=== PATIENT | male | born 1965 | race Caucasian/White ===

== ENCOUNTER 2019-03-17 10:10 | Emergency (ER) | payer OTHER ==
[2019-03-17] MEDS ORDERED: FLU Vacc QS2019-20(6MOS+)/PF 60 MCG/0.5 ML SYRINGE IM ONE (10:30)
--- NOTE | 2019-03-17 10:51 | EDM.PDOC ---
ED HPI GENERAL MEDICAL PROBLEM - General Chief Complaint: Upper Extremity Injury/Pain Stated Complaint: HAND PAIN AND LEG PAIN Time Seen by Provider: 03/17/19 10:38 Source of Information: Reports: Patient, RN Notes Reviewed - History of Present Illness INITIAL COMMENTS - FREE TEXT/NARRATIVE: 53-year-old male comes in with bilateral wrist pain, right ankle pain. He states he injured his right ankle at work about a week ago. He twisted the ankle and it has been sore and swollen since that time. The other reason he comes in is for bilateral wrist discomfort. States he was "detained" by a [employer] police coxswain last evening. He was asked to leave the bar, not drinking but apparently creating some type of disturbance. He was asked to leave but apparently did not leave fast enough and therefore he was in his words "detained" which included having handcuffs placed. He was held that [facility] for "16 hours" and just released a short time ago. He states he has bilateral wrist discomfort. He also suffered some bruising to his left upper arm and also suffered a left fore head abrasion. There was no LOC. He does not have significant headache. No neck or back pain. He does have pain with motion of the right wrist in particular. As noted he has right ankle pain from prior injury. Bilateral Hand Pain Score (Numeric/FACES): 10 - Related Data Allergies Allergy/AdvReac Type Severity Reaction Status Date / Time No Known Allergies Allergy Verified 03/17/19 10:20 Home Meds: Home Meds Cholecalciferol (Vitamin D3) [Vitamin D] 5,000 unit PO DAILY 03/17/19 [History] Fish Oil/Valmy-3 Fatty Acids [Fish Oil 1,000 MG] 1 each PO DAILY 03/17/19 [ History] Omeprazole 20 mg PO DAILY 03/17/19 [History] Past Medical History Gastrointestinal History: Reports: Other (See Below) Other Gastrointestinal History: "Barretts Disease" Psychiatric History: Reports: Addiction Social & Family History - Tobacco Use Smoking Status *Q: Current Every Day Smoker Years of Tobacco use: 40 Packs/Tins Daily: 2 - Caffeine Use Caffeine Use: Reports: Coffee - Recreational Drug Use Recreational Drug Use: Yes Drug Use in Last 12 Months: No Recreational Drug Type: 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 Denies: Numbness, Tingling, Weakness ED EXAM, GENERAL - Physical Exam Exam: See Below General Appearance: Alert, No Apparent Distress Throat/Mouth: Normal Inspection Respiratory/Chest: No Respiratory Distress, Lungs Clear, Normal Breath Sounds Cardiovascular: Tachycardia Neurological: Alert, Oriented, No Motor/Sensory Deficits Psychiatric: Normal Affect, Normal Mood, Other (Patient does ramble a bit with his speech but he clearly knows what he is talking about, no evidence for psychosis or hallucinations at this time.) Skin Exam: Warm, Dry, Normal Color Course - Vital Signs Last Recorded V/S: Last Vital Signs Temp 97.2 F 03/17/19 10:21 Pulse 100 03/17/19 10:21 Resp 18 03/17/19 10:21 BP 135/87 03/17/19 10:21 Pulse Ox 96 03/17/19 10:21 - Orders/Labs/Meds Orders: Active Orders 24 hr Category Date Time Status Influenza Vaccine Charge [RC] .DISCHARGE Care 03/17/19 10:27 Active Meds: Medications Discontinued Medications Generic Name Dose Route Start Last Admin Trade Name Lamonteq PRN Reason Stop Dose Admin Influenza Virus Vaccine 1 each 03/17/19 10:27 Pharmacy To Dose - Influenza Vaccine IM 03/17/19 10:28 ONETIME ONE Influenza Virus Vaccine 30 mcg 03/17/19 10:30 Fluzone Quad Pedi Syringe IM 03/17/19 10:31 .ONCE ONE Influenza Virus Vaccine 60 mcg 03/17/19 10:30 03/17/19 11:01 Fluzone Quad Syringe IM 03/17/19 10:31 Not Given .ONCE ONE Departure - Departure Time of Disposition: 11:46 Disposition: Home, Self-Care 01 Condition: Fair Clinical Impression: Sprain of wrist, Contusion, knee, Ankle sprain - Discharge Information Instructions: Contusion, [id number] Referrals: PCP,None [Primary Care Provider] - Forms: ED Department Discharge Additional Instructions: Zachary wrap right wrist, right knee, right ankle. Ice packs and elevation right ankle and foot as best you can, Tylenol every 6-8 hours if needed for pain. Follow up with Dr Shultz as planned. - My Orders Last 24 Hours: My Active Orders 03/17/19 10:27 Influenza Vaccine Charge [RC] .DISCHARGE - Assessment/Plan Last 24 Hours: My Active Orders 03/17/19 10:27 Influenza Vaccine Charge [RC] .DISCHARGE
--- NOTE | 2019-03-17 12:52 | CR ---
Right wrist: Four views of the right wrist were obtained. Comparison: No previous right wrist exam. Joint spaces are preserved. No fracture, dislocation or other bony abnormality is identified. Impression: 1. No abnormality is appreciated on right wrist exam. Diagnostic code #1
--- NOTE | 2019-03-17 12:52 | CR ---
Right knee: Four views of the right knee were obtained. Comparison: No previous knee exam. Joint spaces are not optimally seen on this exam. No discrete fracture or other bony abnormality is seen. No joint effusion is noted. Very small calcification is seen on one view off the lateral joint which is likely incidental. Impression: 1. Joint spaces are not optimally seen. 2. Small calcification as noted above which is believed to be incidental. 3. No acute abnormality is appreciated on right knee exam. Diagnostic code #2
== END 2019-03-17 12:00 | disposition home or self-care (01) ==
LOC: JD.ED 10:10
DX: S63.501A Unspecified sprain of right wrist, initial encounter (principal); S93.401A Sprain of unspecified ligament of right ankle, initial encounter; S80.01XA Contusion of right knee, initial encounter; F17.210 Nicotine dependence, cigarettes, uncomplicated; Y35.813A Legal intervention involving manhandling, suspect injured, initial encounter; X50.1XXA Overexertion from prolonged static or awkward postures, initial encounter
CPT/HCPCS: 73110-26-RT; 73110-RT; 73564-26-RT; 73564-RT; 99283-25

== ENCOUNTER 2022-07-26 16:17 | Emergency (ER) | payer OTHER ==
[2022-07-26] MEDS ORDERED: Ondansetron 4 MG/2 ML SDV IVPUSH ONE (17:11)
[2022-07-26] MEDS ORDERED: Sodium Chloride 0.9% 10 ML Syringe FLUSH PRN (17:11)
[2022-07-26] MEDS ORDERED: Sodium Chloride 0.9% 1,000 ML IV STA (17:11)
[2022-07-26] MEDS ORDERED: Pantoprazole 40 MG Vial IVPUSH ONE (17:12)
[2022-07-26] MEDS ORDERED: Meclizine 25 MG Tab PO ONE (17:12)
== END 2022-07-26 19:37 | disposition home or self-care (01) ==
LOC: JD.ED 16:17
DX: R42 Dizziness and giddiness (principal); R11.2 Nausea with vomiting, unspecified
CPT/HCPCS: 36415; 80053; 83690; 85025; 85610; 85730; 96361; 96374; 96375; 99284; C9113; J2405; J3490; J7030

== ENCOUNTER 2022-07-27 13:56 | Emergency (ER) | payer OTHER ==
[2022-07-27] MEDS ORDERED: Ondansetron 4 MG/2 ML SDV IVPUSH ONE (14:24)
[2022-07-27] MEDS ORDERED: Sodium Chloride 0.9% 10 ML Syringe FLUSH PRN (14:24)
[2022-07-27] MEDS ORDERED: Meclizine 25 MG Tab PO ONE (14:28)
[2022-07-27 15:09] LABS: ESTIMATED GFR 100 mL/min (>60)
[2022-07-27] MEDS ORDERED: Pantoprazole 40 MG Vial IVPUSH ONE (15:19)
[2022-07-27] MEDS ORDERED: OLANZapine 5 MG Tab PO ONE (16:38)
== END 2022-07-27 18:21 ==
LOC: JD.ED 13:56
DX: K92.2 Gastrointestinal hemorrhage, unspecified (principal); Z72.0 Tobacco use
CPT/HCPCS: 36415; 70450; 71045; 74177; 80053; 80306; 80307; 83690; 85025; 86140; 96374; 96375; 99285; A9270; C9113; J2405; J3490

== ENCOUNTER 2022-08-03 12:32 | Emergency (ER) | payer OTHER ==
[2022-08-03 15:03] LABS: CORONAVIRUS COVID-19 NAA NEGATIVE (NEGATIVE)
[2022-08-03] MEDS ORDERED: Nicotine 21 MG/24 Hr Patch TRDERM ONE (17:31)
[2022-08-03] MEDS ORDERED: Ibuprofen 600 MG Tab PO ONE (19:00)
[2022-08-04] MEDS ORDERED: Nicotine 21 MG/24 Hr Patch TRDERM ONE (06:25)
[2022-08-04] MEDS ORDERED: Famotidine 20 MG Tab PO SCH (06:30)
== END 2022-08-04 06:40 ==
LOC: JD.ED 12:32
DX: F31.9 Bipolar disorder, unspecified (principal); F15.10 Other stimulant abuse, uncomplicated; F12.90 Cannabis use, unspecified, uncomplicated; D64.9 Anemia, unspecified; K21.9 Gastro-esophageal reflux disease without esophagitis; F17.210 Nicotine dependence, cigarettes, uncomplicated; Z79.899 Other long term (current) drug therapy; Z20.822 Contact with and (suspected) exposure to COVID-19
CPT/HCPCS: 0241U; 36415; 80053; 80143; 80179; 80306; 80307; 84443; 85025; 93005; 99285; A9270; 93010; 99284

== ENCOUNTER 2024-04-16 12:58 | Observation (INO) | payer OTHER ==
[2024-04-16] MEDS ORDERED: Sodium Chloride 0.9% 10 ML Syringe FLUSH PRN (13:11)
[2024-04-16] MEDS: Sodium Chloride 0.9% 10 ML Syringe FLUSH PRN (13:44)
[2024-04-16] MEDS: Sodium Chloride 0.9% 100 ML IV SCH (13:44)
[2024-04-16] MEDS: Iopamidol 755 Mg/ML 100 ML Bottle IVPUSH ONE (13:44)
[2024-04-16 13:54] LABS: BASOPHILS PERCENT AUTO 0.3 % (0.0-1.0); EOSINOPHILS PERCENT AUTO 0.2 % (0.0-6.0); HEMATOCRIT 38.7 % (42.0-52.0); HEMOGLOBIN 12.9 gm/dl (14.0-18.0); IMMATURE GRAN ABSOLUTE AUTO 0.06 K/mm3 (0.00-0.05); IMMATURE GRAN PERCENT AUTO 0.7 % (0.0-0.4); LYMPHOCYTES ABSOLUTE AUTO 0.5 K/mm3 (1.0-4.8); MEAN CORPUSCULAR HEMOGLOBIN 29.9 pg (28.0-32.0); MEAN CORPUSCULAR HGB CONC 33.3 g/dl (32.0-36.0); MEAN CORPUSCULAR VOLUME 89.8 fl (83.0-99.0); MEAN PLATELET VOLUME 10.9 fl (9.4-12.4); MONOCYTES ABSOLUTE AUTO 0.6 K/mm3 (0.0-0.8); MONOCYTES PERCENT AUTO 6.6 % (0.0-8.0); NEUTROPHILS ABSOLUTE AUTO 7.7 K/mm3 (1.8-7.7); NEUTROPHILS PERCENT AUTO 86.2 % (41.0-71.0); PLATELET COUNT,PLT 182 K/mm3 (150-400); RED BLOOD CELL COUNT 4.31 M/mm3 (4.52-5.90); WHITE BLOOD CELL COUNT,WBC 8.89 K/mm3 (3.9-11.3)
[2024-04-16 14:14] LABS: A/G RATIO 0.7 (1-2); ALBUMIN 2.7 g/dl (3.4-5.0); ANION GAP 15.6 (5-15); BILIRUBIN TOTAL 0.6 mg/dL (0.2-1.0); BUN/CREATININE RATIO 13.6 (14-18); C-REACTIVE PROTEIN 6.27 mg/dL (<0.30); CALCIUM 8.8 mg/dL (8.5-10.1); CREATININE 1.1 mg/dL (0.7-1.3); EST CRCL DRUG DOSING (CG) 68.44 mL/min; MAGNESIUM 2.1 mg/dL (1.8-2.4); POTASSIUM,K 3.6 mEq/L (3.5-5.1); PROTEIN TOTAL,TP 6.8 g/dl (6.4-8.2)
[2024-04-16] MEDS: Sodium Chloride 0.9% 1,000 ML IV ONE (14:58)
[2024-04-16 17:54] LABS: APPEARANCE,URINE CLEAR (Clear); BILIRUBIN,URINE NEGATIVE (Negative); COLOR,URINE YELLOW (Yellow); GLUCOSE,URINE NEGATIVE (Negative); KETONES,URINE 2+ (Negative); LEUKOCYTE ESTERASE,URINE NEGATIVE (Negative); NITRITE,URINE NEGATIVE (Negative); OCCULT BLOOD,URINE TRACE-INTACT (Negative); PROTEIN,URINE TRACE (Negative); RBC,URINE 0-5 /hpf (0-5); SQUAMOUS EPITHELIAL CELLS,UR 0-5 /hpf (0-5); WBC,URINE 0-5 /hpf (0-5)
[2024-04-16 17:55] LABS: BACTERIA,URINE FEW /hpf (FEW); MUCUS,URINE FEW /hpf (FEW)
[2024-04-16] MEDS: Aspirin 81 MG Tab.Chew PO ONE (21:57)
[2024-04-16] MEDS ORDERED: Acetaminophen 325 MG Tab PO PRN (22:21)
[2024-04-17] MEDS ORDERED: Ondansetron 4 MG/2 ML SDV IV PRN (08:33)
[2024-04-17] MEDS ORDERED: Morphine 2 MG/ML SYRINGE IVPUSH PRN (08:33)
[2024-04-17] MEDS ORDERED: Docusate Sodium 100 MG Cap PO PRN (08:33)
[2024-04-17] MEDS ORDERED: oxyCODONE 5 MG Tab PO PRN (08:33)
[2024-04-17] MEDS: Enoxaparin 40 MG/0.4 ML Syringe SUBCUT SCH (08:55)
[2024-04-17] MEDS: Aspirin 81 MG Tab.EC PO SCH (08:55)
[2024-04-17] MEDS ORDERED: Enoxaparin 30 MG/0.3 ML Syringe SUBCUT SCH (09:00)
[2024-04-17] MEDS ORDERED: Albuterol 0.083% 2.5 MG/3 ML Neb Soln NEB PRN (15:08)
[2024-04-17] MEDS: Nicotine 14 MG/24 Hr Patch TRDERM SCH (15:34)
[2024-04-18] MEDS: Melatonin 3 MG Tab PO PRN (02:16)
[2024-04-18 04:38] LABS: BASOPHILS PERCENT AUTO 0.5 % (0.0-1.0); EOSINOPHILS PERCENT AUTO 0.1 % (0.0-6.0); HEMATOCRIT 37.6 % (42.0-52.0); HEMOGLOBIN 12.3 gm/dl (14.0-18.0); IMMATURE GRAN ABSOLUTE AUTO 0.06 K/mm3 (0.00-0.05); IMMATURE GRAN PERCENT AUTO 0.7 % (0.0-0.4); LYMPHOCYTES ABSOLUTE AUTO 0.9 K/mm3 (1.0-4.8); LYMPHOCYTES PERCENT AUTO 11.7 % (24.0-44.0); MEAN CORPUSCULAR HEMOGLOBIN 29.5 pg (28.0-32.0); MEAN CORPUSCULAR HGB CONC 32.7 g/dl (32.0-36.0); MEAN CORPUSCULAR VOLUME 90.2 fl (83.0-99.0); MEAN PLATELET VOLUME 10.7 fl (9.4-12.4); MONOCYTES ABSOLUTE AUTO 0.9 K/mm3 (0.0-0.8); MONOCYTES PERCENT AUTO 11.6 % (0.0-8.0); NEUTROPHILS ABSOLUTE AUTO 6.1 K/mm3 (1.8-7.7); NEUTROPHILS PERCENT AUTO 75.4 % (41.0-71.0); PLATELET COUNT,PLT 205 K/mm3 (150-400); RED BLOOD CELL COUNT 4.17 M/mm3 (4.52-5.90); WHITE BLOOD CELL COUNT,WBC 8.05 K/mm3 (3.9-11.3)
[2024-04-18 04:59] LABS: ANION GAP 14.8 (5-15); C-REACTIVE PROTEIN 7.16 mg/dL (<0.30); CALCIUM 8.5 mg/dL (8.5-10.1); CREATININE 0.7 mg/dL (0.7-1.3); EST CRCL DRUG DOSING (CG) 107.54 mL/min; POTASSIUM,K 3.8 mEq/L (3.5-5.1)
[2024-04-18] MEDS: Ondansetron 4 MG Tab.DIS PO PRN (10:29)
== END 2024-04-18 16:10 | disposition home or self-care (01) ==
LOC: JD.ED 12:58 → JD.MS 21:49
PROVIDERS: ADMIT Family Medicine; ATTEND Family Medicine
DX: M62.81 Muscle weakness (generalized) (principal); F31.9 Bipolar disorder, unspecified; R26.2 Difficulty in walking, not elsewhere classified; J44.9 Chronic obstructive pulmonary disease, unspecified; M54.9 Dorsalgia, unspecified; G89.29 Other chronic pain; F43.10 Post-traumatic stress disorder, unspecified; F17.210 Nicotine dependence, cigarettes, uncomplicated; Z79.899 Other long term (current) drug therapy
CPT/HCPCS: 36415; 70450; 70496; 70498; 70551; 71045; 72141; 72148; 80048; 80053; 81001; 82550; 83735; 84484; 85025; 85652; 86140; 93005; 94761; 96360; 96372; 97110; 97116; 97161; 97530; 99285; A9270; G0378; J1650; J3490; J7030; Q9967; 93010; 99284

== ENCOUNTER 2024-12-20 06:59 | Day surgery (SDC) | payer OTHER ==
[~2024-12-20 06:59] MED LIST: Sodium Chloride 0.9% 10 ML Syringe FLUSH PRN; Sodium Chloride 0.9% 10 ML Syringe FLUSH SCH
[2024-12-20] MEDS: Lactated Ringers 1,000 ML IV SCH (07:20)
[2024-12-20] MEDS ORDERED: Propofol 200 MG/20 ML SDV ONE ×2 (07:54→08:08)
== END 2024-12-20 09:35 | disposition home or self-care (01) ==
LOC: JD.SDS 06:59
PROVIDERS: ATTEND Surgery
DX: Z12.11 Encounter for screening for malignant neoplasm of colon (principal); D12.4 Benign neoplasm of descending colon; K22.70 Barrett's esophagus without dysplasia; K44.9 Diaphragmatic hernia without obstruction or gangrene; K20.90 Esophagitis, unspecified without bleeding; K57.30 Diverticulosis of large intestine without perforation or abscess without bleeding; F17.210 Nicotine dependence, cigarettes, uncomplicated; Z79.899 Other long term (current) drug therapy
CPT/HCPCS: 43239; 45380; C9777; J2003; J2704; J7120; 00813